=== PATIENT | male | born 1960 | race Two or more races ===

== ENCOUNTER 2017-09-03 14:09 | Emergency (ER) | payer OTHER ==
[~2017-09-03] VITALS: Ht 167.6 cm; Wt 72.6 kg
[2017-09-03] MEDS ORDERED: KETO10TA2 PO (18:20)
[2017-09-03] MEDS ORDERED: CYCLOBENZAPRINE10 MG PO (18:20)
[2017-09-03] MEDS ORDERED: ORPHENADRINE C100 MG PO (18:20)
== END 2017-09-03 18:39 | disposition home or self-care (01) ==
LOC: ER 14:09
DX: S39.012A Strain of muscle, fascia and tendon of lower back, initial encounter (principal); X50.0XXA Overexertion from strenuous movement or load, initial encounter; Y93.89 Activity, other specified; Y92.89 Other specified places as the place of occurrence of the external cause; Y99.8 Other external cause status

== ENCOUNTER 2019-04-08 14:22 | Emergency (ER) | payer OTHER ==
[~2019-04-08] VITALS: Ht 170.2 cm; Wt 69.4 kg
[~2019-04-08 14:22] MED LIST: CYCLOBENZAPRINE10 MG PO; KETO10TA2 PO; ORPHENADRINE C100 MG PO
== END 2019-04-08 18:25 | disposition home or self-care (01) ==
LOC: ER 14:22
DX: M25.551 Pain in right hip (principal); S70.01XS Contusion of right hip, sequela; V00.131S Fall from skateboard, sequela